=== PATIENT | female | born 1960 | race Caucasian/White ===

== ENCOUNTER → 2017-04-12 | Outpatient (CLI) | payer BC ==
--- NOTE | 2017-04-12 12:13 | REP ---
Right hip two views : There is no fracture or dislocation. Mineralization and joint spaces are normal. There are no calcifications or foreign bodies. Impression: Negative right hip. Consider MRI given the history of pain for 1 year. Signed by Talha Rodriguez MD 04/12/2017 12:05 P
== END ==
LOC: M WUC 09:56
PROVIDERS: ATTEND Physician Assistant
DX: M25.551 Pain in right hip (principal)

== ENCOUNTER → 2017-04-26 | Outpatient (REF) | payer BC ==
[2017-04-26 11:18] LABS: BASO # 0.1 K/mm3 (0.0-0.2); BASO % 0.7 % (0.0-1.0); EOS # 0.1 K/mm3 (0.0-0.50); EOS % 1.2 % (0.0-3.0); LARGE UNSTAINED CELL # 0.1 K/mm3 (0.0-0.4); LARGE UNSTAINED CELL % 0.7 % (0.0-4.0); LYMPH # 2.2 K/mm3 (1.5-4.5); LYMPH % 21.8 % (24.0-44.0); MEAN CORPUSCULAR HEMOGLOBIN 31.9 pg (27.0-33.0); MEAN CORPUSCULAR HGB CONC 34.5 g/dl (32.0-36.5); MEAN CORPUSCULAR VOLUME 92.5 fl (80.0-96.0); MONO # 0.4 K/mm3 (0.0-0.8); MONO % 3.9 % (0.0-5.0); NEUTROPHILS # 7.1 K/mm3 (1.8-7.7); NEUTROPHILS % 71.7 % (36.0-66.0); PLATELET COUNT, AUTOMATED 290 k/mm3 (150-450); RED CELL DISTRIBUTION WIDTH 12.7 % (11.5-14.5); WHITE BLOOD COUNT 9.9 K/mm3 (4.0-10.0)
[2017-04-26 11:51] LABS: ANION GAP 9 MEQ/L (8-16); BLOOD UREA NITROGEN 12 MG/DL (7-18); CALCIUM LEVEL 9.6 MG/DL (8.5-10.1); CARBON DIOXIDE LEVEL 27 MEQ/L (21-32); CHLORIDE LEVEL 106 MEQ/L (98-107); CREATININE FOR GFR 0.76 MG/DL (0.55-1.02); GLOMERULAR FILTRATION RATE > 60.0 (>51); GLUCOSE, FASTING 89 MG/DL (70-105); POTASSIUM SERUM 4.2 MEQ/L (3.5-5.1); SODIUM LEVEL 142 MEQ/L (136-145); URIC ACID 5.4 MG/DL (2.6-6.0)
[2017-04-26 12:22] LABS: ERYTHROCYTE SEDIMENTATION RATE 19 mm/hr (0-30)
[2017-04-28 00:06] LABS: Lyme Disease IgG/IgM Antibodie <0.91 ISR (0.00-0.90); Lyme Disease IgM Ab Quantitati <0.80 index (0.00-0.79)
== END ==
LOC: M LABDRAW1 09:54
PROVIDERS: ATTEND Physician Assistant Surgical
DX: M25.551 Pain in right hip (principal)

== ENCOUNTER → 2017-06-07 | Outpatient (REF) | payer BC | LOC: M LABDRAW1 11:04 | PROVIDERS: ATTEND Physician Assistant Surgical | DX: M16.11 Unilateral primary osteoarthritis, right hip (principal) ==

== ENCOUNTER → 2022-06-28 | Outpatient (CLI) | payer BC ==
[~2022-06-28] MED LIST: CEFD300C41 PO; ISOVUE-300 61% 50ML VIAL ONE; KETO10TAB PO; LIDOCAINE 1% MDV 20ML VIAL ONE; methylPREDNISolone SUSP 40MG/ML 1ML VIAL (DEPO MEDROL) ONE
== END ==
LOC: M PLAIMG 14:41
PROVIDERS: ATTEND Physician Assistant Surgical
DX: M16.11 Unilateral primary osteoarthritis, right hip (principal)
CPT/HCPCS: 20610; 76000; J1030; Q9967

== ENCOUNTER → 2022-07-15 | Outpatient (CLI) | payer BC ==
[2022-07-15 13:35] LABS: HEMATOCRIT 44.5 % (36.0-47.0); HEMOGLOBIN 14.4 g/dl (12.0-15.5); MEAN CORPUSCULAR HEMOGLOBIN 30.9 pg (27.0-33.0); MEAN CORPUSCULAR HGB CONC 32.4 g/dl (32.0-36.5); MEAN CORPUSCULAR VOLUME 95.5 fl (80.0-96.0); PLATELET COUNT, AUTOMATED 290 10^3/uL (150-450); RED BLOOD COUNT 4.66 10^6/uL (4.00-5.40); WHITE BLOOD COUNT 9.9 10^3/uL (4.0-10.0)
[2022-07-15 15:05] LABS: ALBUMIN 4.2 G/DL (3.2-5.2); ALT/SGPT 27 U/L (7.0-40); BILIRUBIN,TOTAL 0.8 MG/DL (0.3-1.2); BLOOD UREA NITROGEN 15 MG/DL (9-23); CALCIUM LEVEL 9.1 MG/DL (8.3-10.6); CARBON DIOXIDE LEVEL 26 MMOL/L (20-31); CHLORIDE LEVEL 102 MMOL/L (98-107); CHOLESTEROL LEVEL 251 MG/DL (<200); CHOLESTEROL RISK RATIO 2.75 (<5); CREATININE FOR GFR 0.75 MG/DL (0.55-1.30); GLOMERULAR FILTRATION RATE > 60.0 (>45); GLUCOSE, FASTING 89 MG/DL (74-106); LDL CHOLESTEROL 144.8 MG/DL (<100); NON-HDL-C 160 MG/DL; POTASSIUM SERUM 3.9 MMOL/L (3.5-5.1); SODIUM LEVEL 138 MMOL/L (136-145); THYROID STIMULATING HORMONE 1.443 uIU/ML (0.55-4.78); TOTAL 25(OH) VITAMIN D 11.1 NG/ML (20.0-100.0); TOTAL PROTEIN 7.2 G/DL (5.7-8.2); TRIGLYCERIDES LEVEL 76 MG/DL (<150)
== END ==
LOC: M PLALAB 11:13
PROVIDERS: ATTEND Nurse Practitioner Adult Health
DX: Z13.29 Encounter for screening for other suspected endocrine disorder (principal); Z13.21 Encounter for screening for nutritional disorder; Z13.220 Encounter for screening for lipoid disorders; Z76.89 Persons encountering health services in other specified circumstances

== ENCOUNTER 2022-07-26 06:29 | Emergency (ER) | payer BC ==
[~2022-07-26] VITALS: Ht 154.9 cm; Wt 61.1 kg
[2022-07-26 08:03] LABS: BASO # 0.1 10^3/uL (0.0-0.2); BASO % 0.6 % (0.0-1.0); EOS # 0.1 10^3/uL (0.0-0.5); EOS % 0.7 % (0.0-3.0); HEMATOCRIT 42.6 % (36.0-47.0); HEMOGLOBIN 14.5 g/dl (12.0-15.5); LYMPH # 2.3 10^3/uL (1.5-5.0); LYMPH % 23.4 % (24.0-44.0); MEAN CORPUSCULAR HEMOGLOBIN 31.5 pg (27.0-33.0); MEAN CORPUSCULAR VOLUME 92.4 fl (80.0-96.0); MONO # 0.8 10^3/uL (0.0-0.8); NEUTROPHILS # 6.5 10^3/uL (1.5-8.5); NEUTROPHILS % 66.9 % (36.0-66.0); PLATELET COUNT, AUTOMATED 296 10^3/uL (150-450); RED BLOOD COUNT 4.61 10^6/uL (4.00-5.40); WHITE BLOOD COUNT 9.7 10^3/uL (4.0-10.0)
[2022-07-26] MEDS ORDERED: KETOROLAC 30 MG/ML 1ML VIAL IV ONE (08:15)
[2022-07-26 08:57] LABS: ALBUMIN 4.2 G/DL (3.2-5.2); ALKALINE PHOSPHATASE 112 U/L (46-116); ALT/SGPT 21 U/L (7.0-40); AST/SGOT 24 U/L (<34); BILIRUBIN,DIRECT 0.2 MG/DL (<0.4); BILIRUBIN,TOTAL 0.5 MG/DL (0.3-1.2); BLOOD UREA NITROGEN 17 MG/DL (9-23); CALCIUM LEVEL 9.2 MG/DL (8.3-10.6); CARBON DIOXIDE LEVEL 22 MMOL/L (20-31); CHLORIDE LEVEL 103 MMOL/L (98-107); CREATININE FOR GFR 0.88 MG/DL (0.55-1.30); GLOMERULAR FILTRATION RATE > 60.0 (>45); GLUCOSE, FASTING 99 MG/DL (74-106); LIPASE 30 U/L (12-53); POTASSIUM SERUM 4.1 MMOL/L (3.5-5.1); SODIUM LEVEL 137 MMOL/L (136-145); TOTAL PROTEIN 7.1 G/DL (5.7-8.2)
[2022-07-26] MEDS ORDERED: CEFD300C41 PO (09:39)
[2022-07-26] MEDS ORDERED: KETO10TAB PO (09:39)
[2022-07-26 10:01] VITALS: BP 197/79
== END 2022-07-26 10:01 | disposition home or self-care (01) ==
LOC: M ED 06:29
DX: N39.0 Urinary tract infection, site not specified (principal); R10.9 Unspecified abdominal pain; I88.9 Nonspecific lymphadenitis, unspecified; F17.210 Nicotine dependence, cigarettes, uncomplicated; Z91.013 Allergy to seafood; Z79.899 Other long term (current) drug therapy
CPT/HCPCS: 74176; 80048; 80076; 81000; 83690; 85025; 96374; 99284; J1885

== ENCOUNTER → 2022-09-06 | Outpatient (CLI) | payer BC, OTHER, SELFPAY ==
[~2022-09-06] MED LIST changes: -ISOVUE-300 61% 50ML VIAL ONE; -LIDOCAINE 1% MDV 20ML VIAL ONE; -methylPREDNISolone SUSP 40MG/ML 1ML VIAL (DEPO MEDROL) ONE
== END ==
LOC: M WHC 07:21
PROVIDERS: ATTEND Nurse Practitioner Adult Health
DX: R31.9 Hematuria, unspecified (principal); Z78.0 Asymptomatic menopausal state; K76.89 Other specified diseases of liver; D73.89 Other diseases of spleen; K76.0 Fatty (change of) liver, not elsewhere classified

== ENCOUNTER → 2022-09-24 | Outpatient (CLI) | payer OTHER | LOC: M WHC 08:23 | PROVIDERS: ATTEND Nurse Practitioner Adult Health | DX: Z12.31 Encounter for screening mammogram for malignant neoplasm of breast (principal); R92.8 Other abnormal and inconclusive findings on diagnostic imaging of breast ==

== ENCOUNTER → 2022-10-07 | Outpatient (CLI) | payer OTHER ==
[~2022-10-07] MED LIST changes: +ATOR1TAB19 PO; +DRIS50003 PO; +ERGO500029 PO; +ISOVUE-300 61% 100ML VIAL As Ordered ONE; +LIDOCAINE 1% MDV 20ML VIAL As Ordered ONE; +VALS1TAB66 PO; +VALS40TA9 PO; +methylPREDNISolone SUSP 40MG/ML 1ML VIAL (DEPO MEDROL) As Ordered ONE
== END ==
LOC: M RAD 10:08
PROVIDERS: ATTEND Physician Assistant Surgical
DX: M16.12 Unilateral primary osteoarthritis, left hip (principal)
CPT/HCPCS: 20610; 76000; J1030; Q9967

== ENCOUNTER → 2022-10-13 | Outpatient (CLI) | payer OTHER ==
[~2022-10-13] MED LIST changes: -ERGO500029 PO; -ISOVUE-300 61% 100ML VIAL As Ordered ONE; -LIDOCAINE 1% MDV 20ML VIAL As Ordered ONE; -VALS1TAB66 PO; -VALS40TA9 PO; -methylPREDNISolone SUSP 40MG/ML 1ML VIAL (DEPO MEDROL) As Ordered ONE
== END ==
LOC: M WHC 08:10
PROVIDERS: ATTEND Nurse Practitioner Adult Health
DX: R92.2 Inconclusive mammogram (principal); N63.15 Unspecified lump in the right breast, overlapping quadrants; N63.25 Unspecified lump in the left breast, overlapping quadrants
CPT/HCPCS: 76642; 77065; G0279

== ENCOUNTER → 2022-10-19 | Outpatient (CLI) | payer OTHER ==
[~2022-10-19] MED LIST changes: +**SFHN** LIDOCAINE 1% MDV 20ML VIAL ONE; +**SFHN** SODIUM BICARBONATE 8.4% 10MEQ 10ML VIAL ONE
[2022-10-19 09:51] VITALS: BP 170/88
== END ==
LOC: M WHCPRO 08:02
PROVIDERS: ATTEND Nurse Practitioner Adult Health
DX: R92.8 Other abnormal and inconclusive findings on diagnostic imaging of breast (principal); N63.10 Unspecified lump in the right breast, unspecified quadrant
CPT/HCPCS: 19083; 77065; 88305; G0279

== ENCOUNTER → 2022-10-21 | Outpatient (CLI) | payer OTHER ==
[~2022-10-21] MED LIST changes: -**SFHN** LIDOCAINE 1% MDV 20ML VIAL ONE; -**SFHN** SODIUM BICARBONATE 8.4% 10MEQ 10ML VIAL ONE
== END ==
LOC: M RAD 08:17
PROVIDERS: ATTEND Nurse Practitioner Adult Health
DX: Z12.2 Encounter for screening for malignant neoplasm of respiratory organs (principal)

== ENCOUNTER → 2022-10-26 | Outpatient (CLI) | payer OTHER ==
[~2022-10-26] MED LIST changes: +**SFHN** SODIUM BICARBONATE 8.4% 10MEQ 10ML VIAL ONE; +LIDOCAINE 1% MDV 20ML VIAL ONE
[2022-10-26 10:44] VITALS: BP 162/84
== END ==
LOC: M WHCPRO 09:12
PROVIDERS: ATTEND Nurse Practitioner Adult Health
DX: R92.8 Other abnormal and inconclusive findings on diagnostic imaging of breast (principal); N63.10 Unspecified lump in the right breast, unspecified quadrant

== ENCOUNTER 2022-12-03 10:20 | Day surgery (SDC) | payer OTHER ==
[~2022-12-03] VITALS: Ht 154.9 cm; Wt 57.1 kg
[~2022-12-03 10:20] MED LIST changes: -**SFHN** SODIUM BICARBONATE 8.4% 10MEQ 10ML VIAL ONE; +ERGO500029 PO; -LIDOCAINE 1% MDV 20ML VIAL ONE; +NS 1,000 ML IV ONE; +VALS1TAB66 PO; +VALS40TA9 PO
[2022-12-03] MEDS ORDERED: propofoL 200 MG/20 ML VIAL As Ordered ONE ×2 (10:27→10:28)
[2022-12-03] MEDS ORDERED: LIDOCAINE 2% 100MG/5ML SDV (FOR ANES.) As Ordered ONE (10:27)
[2022-12-03] MEDS ORDERED: fentaNYL 100 MCG/2 ML INJECTION As Ordered ONE (10:27)
[2022-12-03 14:05] VITALS: BP 101/54
== END 2022-12-03 14:25 | disposition home or self-care (01) ==
LOC: M OPP 10:20
PROVIDERS: ATTEND Internal Medicine Gastroenterology
DX: D12.2 Benign neoplasm of ascending colon (principal); D12.3 Benign neoplasm of transverse colon; D12.5 Benign neoplasm of sigmoid colon; K64.8 Other hemorrhoids; K59.00 Constipation, unspecified; Q43.8 Other specified congenital malformations of intestine; R10.9 Unspecified abdominal pain; F17.200 Nicotine dependence, unspecified, uncomplicated; K74.60 Unspecified cirrhosis of liver; Z79.02 Long term (current) use of antithrombotics/antiplatelets; Z79.899 Other long term (current) drug therapy; Z91.013 Allergy to seafood; Z80.0 Family history of malignant neoplasm of digestive organs
CPT/HCPCS: 43235; 45385; 88305; J3010

== ENCOUNTER → 2022-12-21 | Outpatient (REF) | payer OTHER ==
[~2022-12-21] MED LIST changes: -NS 1,000 ML IV ONE
== END ==
LOC: M SFHCWAGY 17:22
PROVIDERS: ATTEND Obstetrics & Gynecology
DX: R87.619 Unspecified abnormal cytological findings in specimens from cervix uteri (principal)

== ENCOUNTER → 2022-12-29 | Outpatient (CLI) | payer OTHER ==
[2022-12-29 10:36] LABS: HEMATOCRIT 38.9 % (36.0-47.0); HEMOGLOBIN 12.8 g/dl (12.0-15.5); MEAN CORPUSCULAR HEMOGLOBIN 31.8 pg (27.0-33.0); MEAN CORPUSCULAR HGB CONC 32.9 g/dl (32.0-36.5); MEAN CORPUSCULAR VOLUME 96.5 fl (80.0-96.0); PLATELET COUNT, AUTOMATED 273 10^3/uL (150-450); RED BLOOD COUNT 4.03 10^6/uL (4.00-5.40)
[2022-12-29 10:45] LABS: ALBUMIN 4.3 G/DL (3.2-5.2); ALKALINE PHOSPHATASE 108 U/L (46-116); ALT/SGPT 27 U/L (7.0-40); AST/SGOT 33 U/L (<34); BILIRUBIN,TOTAL 0.6 MG/DL (0.3-1.2); BLOOD UREA NITROGEN 15 MG/DL (9-23); CARBON DIOXIDE LEVEL 26 MMOL/L (20-31); CHLORIDE LEVEL 108 MMOL/L (98-107); CHOLESTEROL LEVEL 204 MG/DL (<200); CHOLESTEROL RISK RATIO 2.72 (<5); CREATININE FOR GFR 0.84 MG/DL (0.55-1.30); GLOMERULAR FILTRATION RATE > 60.0 (>45); GLUCOSE, FASTING 88 MG/DL (74-106); HDL CHOLESTEROL 74.8 MG/DL (>40); LDL CHOLESTEROL 114.4 MG/DL (<100); NON-HDL-C 129.2 MG/DL; POTASSIUM SERUM 4.2 MMOL/L (3.5-5.1); RHEUMATOID FACTOR QUANT < 3.5 IU/ML (<14); SODIUM LEVEL 140 MMOL/L (136-145); TOTAL PROTEIN 6.8 G/DL (5.7-8.2); TRIGLYCERIDES LEVEL 74 MG/DL (<150)
[2022-12-29 10:47] LABS: TOTAL 25(OH) VITAMIN D 79.9 NG/ML (20.0-100.0)
== END ==
LOC: M PLALAB 07:16
PROVIDERS: ATTEND Nurse Practitioner Adult Health
DX: I10 Essential (primary) hypertension (principal); E55.9 Vitamin D deficiency, unspecified; E78.2 Mixed hyperlipidemia; M19.90 Unspecified osteoarthritis, unspecified site

== ENCOUNTER → 2023-01-03 | Outpatient (REF) | payer OTHER | LOC: M SFHCWAGY 17:27 | PROVIDERS: ATTEND Obstetrics & Gynecology | DX: C53.9 Malignant neoplasm of cervix uteri, unspecified (principal) ==

== ENCOUNTER 2023-03-21 14:06 | Observation (INO) | payer OTHER ==
[~2023-03-21] VITALS: Ht 154.9 cm; Wt 59.1 kg
[~2023-03-21 14:06] MED LIST changes: +VALS1TAB67 PO
[2023-03-21 15:28] LABS: BASO # 0.1 10^3/uL (0.0-0.2); BASO % 0.5 % (0.0-1.0); EOS % 0.3 % (0.0-3.0); HEMATOCRIT 37.7 % (36.0-47.0); HEMOGLOBIN 12.6 g/dl (12.0-15.5); LYMPH # 1.4 10^3/uL (1.5-5.0); MEAN CORPUSCULAR HEMOGLOBIN 31.8 pg (27.0-33.0); MEAN CORPUSCULAR HGB CONC 33.4 g/dl (32.0-36.5); MEAN CORPUSCULAR VOLUME 95.2 fl (80.0-96.0); MONO % 7.4 % (2.0-8.0); NEUTROPHILS # 10.5 10^3/uL (1.5-8.5); NEUTROPHILS % 80.2 % (36.0-66.0); PLATELET COUNT, AUTOMATED 251 10^3/uL (150-450); RED BLOOD COUNT 3.96 10^6/uL (4.00-5.40); WHITE BLOOD COUNT 13.1 10^3/uL (4.0-10.0)
[2023-03-21 15:41] LABS: INR 0.91; PARTIAL THROMBOPLASTIN TIME 23.5 SECONDS (24.8-34.2); PROTHROMBIN TIME 12.5 SECONDS (12.5-14.5)
[2023-03-21] MEDS: NS 1,000 ML IV SCH ×2 (15:41→21:27)
[2023-03-21 16:13] LABS: LIPASE 27 U/L (12-53)
[2023-03-21 16:15] LABS: ALBUMIN 3.6 G/DL (3.2-5.2); ALKALINE PHOSPHATASE 97 U/L (46-116); ALT/SGPT 19 U/L (7.0-40); AST/SGOT 21 U/L (<34); BILIRUBIN,DIRECT 0.2 MG/DL (<0.4); BILIRUBIN,TOTAL 0.6 MG/DL (0.3-1.2); BLOOD UREA NITROGEN 17 MG/DL (9-23); CARBON DIOXIDE LEVEL 22 MMOL/L (20-31); CHLORIDE LEVEL 105 MMOL/L (98-107); CK-MB VALUE MASS < 1.0 NG/ML (<3.6); CREATININE FOR GFR 0.81 MG/DL (0.55-1.30); GLOMERULAR FILTRATION RATE > 60.0 (>45); GLUCOSE, FASTING 156 MG/DL (74-106); MAGNESIUM LEVEL 1.9 MG/DL (1.8-2.4); POTASSIUM SERUM 3.5 MMOL/L (3.5-5.1); RSV AMPLIFICATION NEGATIVE (NEGATIVE); SODIUM LEVEL 138 MMOL/L (136-145); TOTAL PROTEIN 6.3 G/DL (5.7-8.2)
[2023-03-21 16:17] LABS: FREE T4 1.25 NG/DL (0.89-1.76); THYROID STIMULATING HORMONE 3.672 uIU/ML (0.55-4.78)
[2023-03-21 16:18] LABS: CPK CREATINE PHOSPHOKINASE 61 U/L (34-145); MB/CK RELATIVE INDEX 1.63 (< OR =4)
[2023-03-21] MEDS ORDERED: MED REC IN PROGRESS XX SCH (18:40)
[2023-03-21] MEDS ORDERED: HOME MED LIST COMPLETE! XX SCH (18:45)
[2023-03-21] MEDS ORDERED: ATORVASTATIN 10 MG TAB PO SCH (21:00)
[2023-03-22 00:24] LABS: CK-MB VALUE MASS < 1.0 NG/ML (<3.6)
[2023-03-22 00:25] LABS: CPK CREATINE PHOSPHOKINASE 56 U/L (34-145); MB/CK RELATIVE INDEX 1.78 (< OR =4)
[2023-03-22] MEDS: NS 1,000 ML IV SCH (02:30)
[2023-03-22 06:00] VITALS: TEMP 98.1
[2023-03-22 07:43] VITALS: BP 126/62; O2SAT 98
[2023-03-22] MEDS ORDERED: ISOVUE-370 76% 100ML VIAL As Ordered ONE (07:56)
[2023-03-22 08:32] LABS: HEMOGLOBIN 12.3 g/dl (12.0-15.5); MEAN CORPUSCULAR HEMOGLOBIN 31.9 pg (27.0-33.0); MEAN CORPUSCULAR HGB CONC 33.2 g/dl (32.0-36.5); MEAN CORPUSCULAR VOLUME 95.9 fl (80.0-96.0); PLATELET COUNT, AUTOMATED 232 10^3/uL (150-450); RED BLOOD COUNT 3.86 10^6/uL (4.00-5.40); WHITE BLOOD COUNT 9.7 10^3/uL (4.0-10.0)
[2023-03-22 08:46] LABS: CPK CREATINE PHOSPHOKINASE 60 U/L (34-145)
[2023-03-22 08:47] LABS: BLOOD UREA NITROGEN 12 MG/DL (9-23); CALCIUM LEVEL 8.4 MG/DL (8.3-10.6); CARBON DIOXIDE LEVEL 22 MMOL/L (20-31); CHLORIDE LEVEL 113 MMOL/L (98-107); CK-MB VALUE MASS < 1.0 NG/ML (<3.6); CREATININE FOR GFR 0.61 MG/DL (0.55-1.30); GLOMERULAR FILTRATION RATE > 60.0 (>45); GLUCOSE, FASTING 136 MG/DL (74-106); MAGNESIUM LEVEL 1.6 MG/DL (1.8-2.4); MB/CK RELATIVE INDEX 1.66 (< OR =4); POTASSIUM SERUM 3.7 MMOL/L (3.5-5.1); SODIUM LEVEL 144 MMOL/L (136-145)
[2023-03-22] MEDS ORDERED: ASPIRIN 81MG ENTERIC TABLET PO SCH (09:00)
[2023-03-22] MEDS ORDERED: ENOXAPARIN 40MG/0.4ML SYRINGE (J1650 PER 10MG) SC SCH (09:00)
[2023-03-22] MEDS ORDERED: ATOR40TA75 PO (10:21)
[2023-03-22] MEDS ORDERED: ASPI81TAEC PO (10:21)
[2023-03-22] MEDS ORDERED: MAGNESIUM OXIDE 400MG TAB (MAG-OX) PO ONE (12:55)
[2023-03-22] MEDS ORDERED: MAG SULF 1GM/100ML (MAG RUN) 1 GM in IV 1 EA IV ONE (13:30)
== END 2023-03-22 11:30 | disposition home or self-care (01) ==
LOC: M ED 14:06 → M ED INP 14:07
PROVIDERS: ADMIT Family Medicine; ATTEND Family Medicine
DX: R55 Syncope and collapse (principal); I65.23 Occlusion and stenosis of bilateral carotid arteries; C53.9 Malignant neoplasm of cervix uteri, unspecified; C54.1 Malignant neoplasm of endometrium; R91.1 Solitary pulmonary nodule; R59.0 Localized enlarged lymph nodes; I10 Essential (primary) hypertension; E78.5 Hyperlipidemia, unspecified; E55.9 Vitamin D deficiency, unspecified; K76.0 Fatty (change of) liver, not elsewhere classified; K76.89 Other specified diseases of liver; M19.90 Unspecified osteoarthritis, unspecified site; Z79.899 Other long term (current) drug therapy; Z79.82 Long term (current) use of aspirin; Z91.013 Allergy to seafood; F17.219 Nicotine dependence, cigarettes, with unspecified nicotine-induced disorders
CPT/HCPCS: 36415; 70450; 70498; 70551; 71045; 74176; 80047; 80048; 80076; 82550; 82553; 83690; 83735; 84439; 84443; 84484; 85025; 85027; 85610; 85730; 87631; 93005; 93041; 93880; 94760; 96360; 96361; 97161; 99285; Q9967

== ENCOUNTER → 2023-04-01 | Outpatient (CLI) | payer OTHER ==
[~2023-04-01] MED LIST changes: +ASPI81TAEC PO; +ATOR40TA75 PO; +LIDOCAINE W/EPINEPHRINE 1% 20ML VIAL As Ordered ONE; +MIDAZOLAM INJ 2MG/2ML VIAL As Ordered ONE; +NS 1,000 ML IV SCH; +ceFAZolin 2 GM/D5W 50 ML IV BAG As Ordered ONE; +ceFAZolin SOD 2 GM in IV 1 EA IV ONE; +fentaNYL 100 MCG/2 ML INJECTION As Ordered ONE
[2023-04-01 12:05] VITALS: TEMP 98.6
[2023-04-01 15:00] VITALS: BP 115/58; O2SAT 94
== END ==
LOC: M IRPRO 11:59
PROVIDERS: ATTEND Internal Medicine Medical Oncology
DX: C54.1 Malignant neoplasm of endometrium (principal); C53.9 Malignant neoplasm of cervix uteri, unspecified
CPT/HCPCS: 36561; 99152; 99153; J0690; J2250; J3010

== ENCOUNTER → 2023-04-26 | Outpatient (CLI) | payer OTHER ==
[~2023-04-26] MED LIST changes: +ACET650T61 PO; -LIDOCAINE W/EPINEPHRINE 1% 20ML VIAL As Ordered ONE; -MIDAZOLAM INJ 2MG/2ML VIAL As Ordered ONE; +MIRA3350 PO; -NS 1,000 ML IV SCH; +OXYC1TAB23 PO; +SENO8.6T5 PO; -ceFAZolin 2 GM/D5W 50 ML IV BAG As Ordered ONE; -ceFAZolin SOD 2 GM in IV 1 EA IV ONE; -fentaNYL 100 MCG/2 ML INJECTION As Ordered ONE
== END ==
LOC: M WHC 10:55
PROVIDERS: ATTEND Nurse Practitioner Adult Health
DX: R92.8 Other abnormal and inconclusive findings on diagnostic imaging of breast (principal)
CPT/HCPCS: 77065; G0279

== ENCOUNTER → 2023-05-20 | Outpatient (CLI) | payer OTHER ==
[~2023-05-20] MED LIST changes: +GASTROGRAFIN SOLUTION 30ML As Ordered ONE; +ISOVUE-370 76% 100ML VIAL As Ordered ONE; +ONDA-84 PO; +PROC10TA5 PO
== END ==
LOC: M RAD 08:29
PROVIDERS: ATTEND Internal Medicine Medical Oncology
DX: C53.9 Malignant neoplasm of cervix uteri, unspecified (principal); C54.1 Malignant neoplasm of endometrium
CPT/HCPCS: 71260; 74177; Q9963; Q9967

== ENCOUNTER → 2023-06-10 | Outpatient (CLI) | payer OTHER ==
[~2023-06-10] MED LIST changes: -CEFD300C41 PO; +CEFD300C42 PO; -GASTROGRAFIN SOLUTION 30ML As Ordered ONE; -ISOVUE-370 76% 100ML VIAL As Ordered ONE
== END ==
LOC: M ONCR 08:23
PROVIDERS: ATTEND General Practice
DX: C54.1 Malignant neoplasm of endometrium (principal); C53.8 Malignant neoplasm of overlapping sites of cervix uteri; Z71.2 Person consulting for explanation of examination or test findings; Z80.0 Family history of malignant neoplasm of digestive organs; Z80.8 Family history of malignant neoplasm of other organs or systems; F17.210 Nicotine dependence, cigarettes, uncomplicated; F17.290 Nicotine dependence, other tobacco product, uncomplicated; Z79.82 Long term (current) use of aspirin; Z79.899 Other long term (current) drug therapy; Z92.21 Personal history of antineoplastic chemotherapy; Z98.51 Tubal ligation status

== ENCOUNTER → 2023-06-29 | Outpatient (REF) | payer OTHER ==
[~2023-06-29] MED LIST changes: +PRED10TA2 PO
[2023-06-29 14:23] LABS: HEMOGLOBIN A1c 5.3 % (4.0-6.0)
== END ==
LOC: M LAB REF 13:23
PROVIDERS: ATTEND Nurse Practitioner Adult Health
DX: R73.9 Hyperglycemia, unspecified (principal)

== ENCOUNTER → 2023-08-04 | Outpatient (CLI) | payer OTHER ==
[~2023-08-04] MED LIST changes: +CEFD1CAP9 PO; -CEFD300C42 PO
== END ==
LOC: M RAD 11:25
PROVIDERS: ATTEND General Practice
DX: C54.1 Malignant neoplasm of endometrium (principal); C53.8 Malignant neoplasm of overlapping sites of cervix uteri

== ENCOUNTER → 2023-08-04 | Outpatient (CLI) | payer OTHER ==
[~2023-08-04] MED LIST changes: +GASTROGRAFIN SOLUTION 30ML As Ordered ONE; +ISOVUE-370 76% 100ML VIAL As Ordered ONE
== END ==
LOC: M RAD 14:00
PROVIDERS: ATTEND Internal Medicine Hematology & Oncology
DX: C54.1 Malignant neoplasm of endometrium (principal)
CPT/HCPCS: 71260; Q9963; Q9967

== ENCOUNTER → 2023-08-11 | Outpatient (CLI) | payer OTHER ==
[~2023-08-11] MED LIST changes: -GASTROGRAFIN SOLUTION 30ML As Ordered ONE; -ISOVUE-370 76% 100ML VIAL As Ordered ONE; +PRED50TA PO
== END ==
LOC: M ONCR 09:37
PROVIDERS: ATTEND General Practice
DX: C53.8 Malignant neoplasm of overlapping sites of cervix uteri (principal); C54.1 Malignant neoplasm of endometrium; Z71.2 Person consulting for explanation of examination or test findings; F17.210 Nicotine dependence, cigarettes, uncomplicated; Z79.82 Long term (current) use of aspirin; Z79.899 Other long term (current) drug therapy; Z91.013 Allergy to seafood; Z92.21 Personal history of antineoplastic chemotherapy

== ENCOUNTER → 2023-08-16 | Outpatient (CLI) | payer OTHER | LOC: M RAD 07:01 | PROVIDERS: ATTEND Internal Medicine Hematology & Oncology | DX: C53.9 Malignant neoplasm of cervix uteri, unspecified (principal); K76.0 Fatty (change of) liver, not elsewhere classified; K76.89 Other specified diseases of liver ==

== ENCOUNTER 2023-08-17 10:18 | Outpatient (RCR) | payer OTHER ==
[2023-08-17] MEDS ORDERED: PRED10TA2 PO (10:45)
[2023-08-17] MEDS ORDERED: PRED50TA PO (13:24)
[2023-08-25] MEDS ORDERED: VALA1TAB5 PO (09:20)
[2023-08-25] MEDS ORDERED: PRED20TA PO ×2 (09:35→10:02)
[2023-09-01] MEDS ORDERED: PRED20TA PO (10:16)
== END 2023-08-28 ==
LOC: M ONCR 10:18
PROVIDERS: ATTEND General Practice
DX: Z51.0 Encounter for antineoplastic radiation therapy (principal); C54.1 Malignant neoplasm of endometrium

== ENCOUNTER → 2023-09-28 | Outpatient (RCR) | payer OTHER ==
[~2023-09-28] MED LIST changes: +LACT20EL PO; +POTA1TAB23 PO; +PRED20TA PO; +PRED5TA PO; +VALA1TAB5 PO; +magnesium citrate PO
== END ==
LOC: M ONCR 09-05 09:02
PROVIDERS: ATTEND General Practice
DX: Z51.0 Encounter for antineoplastic radiation therapy (principal); C54.1 Malignant neoplasm of endometrium

== ENCOUNTER → 2023-10-06 | Outpatient (REF) | payer OTHER ==
[2023-10-06 10:20] LABS: HEMOGLOBIN A1c 5.8 % (4.0-6.0)
[2023-10-06 10:26] LABS: CHOLESTEROL RISK RATIO 4.26 (<5); HDL CHOLESTEROL 65.2 MG/DL (>40); NON-HDL-C 212.8 MG/DL
[2023-10-06 10:29] LABS: TOTAL 25(OH) VITAMIN D 60.2 NG/ML (20.0-100.0)
== END ==
LOC: M LAB REF 09:35
PROVIDERS: ATTEND Nurse Practitioner Adult Health
DX: R73.9 Hyperglycemia, unspecified (principal); E78.2 Mixed hyperlipidemia; E55.9 Vitamin D deficiency, unspecified; Z00.00 Encounter for general adult medical examination without abnormal findings

== ENCOUNTER → 2023-10-12 | Outpatient (CLI) | payer OTHER ==
[~2023-10-12] MED LIST changes: +PROHANCE 279.3MG/ML 15ML VIAL As Ordered ONE
== END ==
LOC: M RAD 09:34
PROVIDERS: ATTEND General Practice
DX: C54.1 Malignant neoplasm of endometrium (principal); C53.8 Malignant neoplasm of overlapping sites of cervix uteri
CPT/HCPCS: 72197; A9576

== ENCOUNTER 2023-10-17 09:30 | Outpatient (RCR) | payer OTHER ==
[~2023-10-17 09:30] MED LIST changes: -PROHANCE 279.3MG/ML 15ML VIAL As Ordered ONE
== END 2023-10-27 ==
LOC: M ONCR 09:30
PROVIDERS: ATTEND General Practice
DX: Z51.0 Encounter for antineoplastic radiation therapy (principal); C54.1 Malignant neoplasm of endometrium

== ENCOUNTER → 2023-12-15 | Outpatient (REF) | payer OTHER ==
[2023-12-19 10:29] LABS: CHOLESTEROL RISK RATIO 4.81 (<5); HDL CHOLESTEROL 56.3 MG/DL (>40); LDL CHOLESTEROL 168.7 MG/DL (<100); NON-HDL-C 214.7 MG/DL
== END ==
LOC: M SFHCPLAZ 10:10
PROVIDERS: ATTEND Nurse Practitioner Adult Health
DX: E78.2 Mixed hyperlipidemia (principal)

== ENCOUNTER → 2023-12-23 | Outpatient (CLI) | payer OTHER | LOC: M WHC 08:03 | PROVIDERS: ATTEND Nurse Practitioner Adult Health | DX: Z12.31 Encounter for screening mammogram for malignant neoplasm of breast (principal) ==

== ENCOUNTER → 2024-01-16 | Outpatient (CLI) | payer OTHER | LOC: M PLARAD 07:57 | PROVIDERS: ATTEND Internal Medicine Medical Oncology | DX: C54.1 Malignant neoplasm of endometrium (principal) | CPT/HCPCS: 78815; A9552 ==

== ENCOUNTER → 2024-01-17 | Outpatient (CLI) | payer OTHER | LOC: M ONCR 09:28 | PROVIDERS: ATTEND General Practice | DX: Z08 Encounter for follow-up examination after completed treatment for malignant neoplasm (principal); Z85.42 Personal history of malignant neoplasm of other parts of uterus; Z85.41 Personal history of malignant neoplasm of cervix uteri; Z72.89 Other problems related to lifestyle; F17.210 Nicotine dependence, cigarettes, uncomplicated; F17.290 Nicotine dependence, other tobacco product, uncomplicated; Z71.2 Person consulting for explanation of examination or test findings; Z79.52 Long term (current) use of systemic steroids; Z79.82 Long term (current) use of aspirin; Z79.899 Other long term (current) drug therapy; Z91.013 Allergy to seafood; Z92.21 Personal history of antineoplastic chemotherapy; Z92.3 Personal history of irradiation ==

== ENCOUNTER → 2024-01-24 | Outpatient (CLI) | payer OTHER ==
[~2024-01-24] MED LIST changes: +ALEN70TA82 PO
== END ==
LOC: M WHC 09:09
PROVIDERS: ATTEND General Practice
DX: M81.0 Age-related osteoporosis without current pathological fracture (principal); Z13.820 Encounter for screening for osteoporosis; C54.1 Malignant neoplasm of endometrium; C53.8 Malignant neoplasm of overlapping sites of cervix uteri

== ENCOUNTER → 2024-04-20 | Outpatient (CLI) | payer OTHER ==
[~2024-04-20] MED LIST changes: +CALCTAB89 PO; +CELE100C PO; +CIPR250T3 PO; +ERGO500029; +FERR325T3 PO; +IBUP200C25 PO; +PRIL20TA2 PO; +SERT50TA29
[2024-04-20 12:28] LABS: APPEARANCE, URINE CLEAR (CLEAR); BACTERIA, URINE AUTO NEGATIVE (NEGATIVE); BILIRUBIN, URINE AUTO NEGATIVE (NEGATIVE); BLOOD, URINE BLOOD 1+ (NEGATIVE); COLOR, URINE YELLOW (YELLOW); GLUCOSE, URINE (UA) AUTO NEGATIVE (NEGATIVE); KETONE, URINE AUTO NEGATIVE (NEGATIVE); LEUKOCYTE ESTERASE, URINE AUTO NEGATIVE (NEGATIVE); MUCUS, URINE SMALL (NEGATIVE); NITRITE, URINE AUTO NEGATIVE (NEGATIVE); PROTEIN, URINE AUTO NEGATIVE (NEGATIVE); RBC, URINE AUTO 18 /HPF (0-3); SPECIFIC GRAVITY URINE AUTO 1.015 (1.002-1.035); SQUAMOUS EPITHELIAL CELL UR AU 0 /HPF (0-6); UROBILINOGEN, URINE AUTO 0.2 mg/dL (0.0-2.0); WBC, URINE AUTO 1 /HPF (0-3)
== END ==
LOC: M ONCR 09:39
PROVIDERS: ATTEND General Practice
DX: C54.1 Malignant neoplasm of endometrium (principal); C53.8 Malignant neoplasm of overlapping sites of cervix uteri; M89.8X9 Other specified disorders of bone, unspecified site; F17.210 Nicotine dependence, cigarettes, uncomplicated; Z79.899 Other long term (current) drug therapy; Z91.013 Allergy to seafood; Z92.21 Personal history of antineoplastic chemotherapy; Z92.3 Personal history of irradiation
CPT/HCPCS: 36415; 81001; G0463

== ENCOUNTER → 2024-04-25 | Outpatient (REF) | payer OTHER ==
[2024-04-25 09:36] LABS: HEMOGLOBIN A1c 5.2 % (4.0-6.0)
[2024-04-25 10:15] LABS: ALBUMIN 3.9 G/DL (3.2-5.2); ALKALINE PHOSPHATASE 122 U/L (46-116); ALT/SGPT 16 U/L (7.0-40); AST/SGOT 21 U/L (<34); BILIRUBIN,TOTAL 0.4 MG/DL (0.3-1.2); BLOOD UREA NITROGEN 24 MG/DL (9-23); CALCIUM LEVEL 8.6 MG/DL (8.3-10.6); CARBON DIOXIDE LEVEL 22 MMOL/L (20-31); CHLORIDE LEVEL 108 MMOL/L (98-107); CHOLESTEROL LEVEL 237 MG/DL (<200); CHOLESTEROL RISK RATIO 3.24 (<5); CREATININE FOR GFR 0.91 MG/DL (0.55-1.30); FREE T4 1.01 NG/DL (0.89-1.76); GLOMERULAR FILTRATION RATE > 60.0 (>45); GLUCOSE, FASTING 88 MG/DL (74-106); LDL CHOLESTEROL 147.4 MG/DL (<100); POTASSIUM SERUM 3.8 MMOL/L (3.5-5.1); SODIUM LEVEL 138 MMOL/L (136-145); THYROID STIMULATING HORMONE 1.222 uIU/ML (0.55-4.78); TOTAL PROTEIN 6.6 G/DL (5.7-8.2); TRIGLYCERIDES LEVEL 83 MG/DL (<150)
[2024-05-03 16:22] LABS: ALPHA 2-MACROGLOBULINS,QN 186 mg/dL (106-279); ALT (SGPT) P5P 9 U/L (6-29); APOLIPOPROTEIN A-1 204 mg/dL (101-198); BILIRUBIN, TOTAL 0.3 mg/dL (0.2-1.2); FIBROSIS SCORE 0.06; FIBROSIS STAGE NO FIBROSIS (F0); GGT 13 U/L (3-65); HAPTOGLOBIN 138 mg/dL (43-212); NECROINFLAM ACT GRADE NO ACTIVITY (A0); NECROINFLAM ACT SCORE 0.02
== END ==
LOC: M LAB REF 08:44
PROVIDERS: ATTEND Nurse Practitioner Adult Health
DX: R73.9 Hyperglycemia, unspecified (principal); E78.2 Mixed hyperlipidemia; K76.0 Fatty (change of) liver, not elsewhere classified; I10 Essential (primary) hypertension

== ENCOUNTER → 2024-04-26 | Outpatient (CLI) | payer OTHER ==
[~2024-04-26] MED LIST changes: -CELE100C PO; -FERR325T3 PO; +ISOVUE-370 76% 100ML VIAL As Ordered ONE; -PRIL20TA2 PO
== END ==
LOC: M RAD 08:43
PROVIDERS: ATTEND Internal Medicine Medical Oncology
DX: C54.1 Malignant neoplasm of endometrium (principal); R91.8 Other nonspecific abnormal finding of lung field
CPT/HCPCS: 71260; Q9967

== ENCOUNTER → 2024-07-17 | Outpatient (CLI) | payer OTHER ==
[~2024-07-17] MED LIST changes: +CELE100C PO; +FERR325T3 PO; +GASTROGRAFIN SOLUTION 30ML As Ordered ONE; +PRIL20TA2 PO
== END ==
LOC: M RAD 10:54
PROVIDERS: ATTEND General Practice
DX: C54.1 Malignant neoplasm of endometrium (principal); C53.8 Malignant neoplasm of overlapping sites of cervix uteri
CPT/HCPCS: 71260; 74177; Q9963; Q9967

== ENCOUNTER → 2024-07-23 | Outpatient (CLI) | payer OTHER ==
[~2024-07-23] MED LIST changes: -GASTROGRAFIN SOLUTION 30ML As Ordered ONE; -ISOVUE-370 76% 100ML VIAL As Ordered ONE; +TRIA1CR80 TOP
[2024-07-23 10:57] LABS: CHOLESTEROL RISK RATIO 4.04 (<5); LDL CHOLESTEROL 157.4 MG/DL (<100)
[2024-07-23 11:27] LABS: HEMOGLOBIN A1c 5.3 % (4.0-6.0)
== END ==
LOC: M PLALAB 07:56
PROVIDERS: ATTEND Nurse Practitioner Adult Health
DX: E55.9 Vitamin D deficiency, unspecified (principal)

== ENCOUNTER → 2024-07-24 | Outpatient (CLI) | payer MEDICARE, OTHER | LOC: M ONCR 08:12 | PROVIDERS: ATTEND General Practice | DX: C54.1 Malignant neoplasm of endometrium (principal); C53.8 Malignant neoplasm of overlapping sites of cervix uteri; L30.8 Other specified dermatitis; M06.9 Rheumatoid arthritis, unspecified; M54.9 Dorsalgia, unspecified; F17.210 Nicotine dependence, cigarettes, uncomplicated; Z92.21 Personal history of antineoplastic chemotherapy; Z92.3 Personal history of irradiation; Z91.013 Allergy to seafood; Z79.899 Other long term (current) drug therapy ==

== ENCOUNTER → 2024-10-24 | Outpatient (CLI) | payer OTHER ==
[~2024-10-24] MED LIST changes: +MACR100C43 PO
== END ==
LOC: M ONCR 08:00
PROVIDERS: ATTEND General Practice
DX: Z08 Encounter for follow-up examination after completed treatment for malignant neoplasm (principal); Z85.41 Personal history of malignant neoplasm of cervix uteri; Z85.42 Personal history of malignant neoplasm of other parts of uterus; R30.0 Dysuria; Z92.21 Personal history of antineoplastic chemotherapy; Z92.3 Personal history of irradiation; F17.210 Nicotine dependence, cigarettes, uncomplicated; Z72.89 Other problems related to lifestyle; Z91.013 Allergy to seafood; Z79.899 Other long term (current) drug therapy

== ENCOUNTER → 2024-12-17 | Outpatient (REF) | payer OTHER ==
[2024-12-17 09:36] LABS: CHOLESTEROL RISK RATIO 2.62 (<5); HDL CHOLESTEROL 66.6 MG/DL (>40); LDL CHOLESTEROL 89.6 MG/DL (<100); NON-HDL-C 108.4 MG/DL
== END ==
LOC: M LAB REF 08:08
PROVIDERS: ATTEND Nurse Practitioner Adult Health
DX: E78.2 Mixed hyperlipidemia (principal); E55.9 Vitamin D deficiency, unspecified

== ENCOUNTER → 2024-12-18 | Outpatient (CLI) | payer OTHER ==
[~2024-12-18] MED LIST changes: +ISOVUE-370 76% 100ML VIAL As Ordered ONE
== END ==
LOC: M RAD 10:26
PROVIDERS: ATTEND Internal Medicine Medical Oncology
DX: C54.1 Malignant neoplasm of endometrium (principal)

== ENCOUNTER → 2025-04-25 | Outpatient (CLI) | payer MEDICARE, OTHER ==
[~2025-04-25] MED LIST changes: +ALEV220T22 PO; -ISOVUE-370 76% 100ML VIAL As Ordered ONE; -PRED50TA PO; +PRED50TA57 PO; +SENN-225 PO; -SENO8.6T5 PO; -SERT50TA29; +SERT50TA29 PO
== END ==
LOC: M ONCR 07:58
PROVIDERS: ATTEND General Practice
DX: C54.1 Malignant neoplasm of endometrium (principal); C53.8 Malignant neoplasm of overlapping sites of cervix uteri; Z92.21 Personal history of antineoplastic chemotherapy; Z92.3 Personal history of irradiation; Z87.891 Personal history of nicotine dependence; Z91.013 Allergy to seafood

== ENCOUNTER → 2025-05-27 | Outpatient (CLI) | payer MEDICARE ==
[~2025-05-27] MED LIST changes: +ISOVUE-370 76% 100 ML VIAL As Ordered ONE
== END ==
LOC: M RAD 09:38
DX: C53.9 Malignant neoplasm of cervix uteri, unspecified (principal); J43.9 Emphysema, unspecified; R59.0 Localized enlarged lymph nodes; R91.8 Other nonspecific abnormal finding of lung field; K76.89 Other specified diseases of liver; D73.89 Other diseases of spleen; K63.89 Other specified diseases of intestine
CPT/HCPCS: 71260; 74177; Q9967

== ENCOUNTER → 2025-05-29 | Outpatient (CLI) | payer MEDICARE ==
[~2025-05-29] MED LIST changes: -ISOVUE-370 76% 100 ML VIAL As Ordered ONE
== END ==
LOC: M PLALAB 12:43
PROVIDERS: ATTEND Nurse Practitioner Adult Health
DX: M25.551 Pain in right hip (principal); M16.11 Unilateral primary osteoarthritis, right hip

== ENCOUNTER → 2025-05-31 | Outpatient (CLI) | payer MEDICARE | LOC: M WHC 06:56 | PROVIDERS: ATTEND Nurse Practitioner Adult Health | DX: Z12.31 Encounter for screening mammogram for malignant neoplasm of breast (principal); R92.323 Mammographic fibroglandular density, bilateral breasts ==

== ENCOUNTER → 2025-05-31 | Outpatient (CLI) | payer MEDICARE ==
[2025-05-31 11:16] LABS: ALT/SGPT 34.0 U/L (7.0-40); AST/SGOT 36.0 U/L (<34); CALCIUM LEVEL 9.1 MG/DL (8.3-10.6); CARBON DIOXIDE LEVEL 26.0 MMOL/L (20-31); CHLORIDE LEVEL 107.0 MMOL/L (98-107); CHOLESTEROL LEVEL 238.0 MG/DL (<200); CHOLESTEROL RISK RATIO 3.82 (<5); CREATININE FOR GFR 0.89 MG/DL (0.55-1.30); GLOMERULAR FILTRATION RATE 71.5 (>45); LDL CHOLESTEROL 151.0 MG/DL (<100); NON-HDL-C 175.8 MG/DL; POTASSIUM SERUM 4.7 MMOL/L (3.5-5.1); SODIUM LEVEL 141.0 MMOL/L (136-145); TRIGLYCERIDES LEVEL 124.0 MG/DL (<150)
[2025-05-31 11:18] LABS: FREE T4 1.17 NG/DL (0.89-1.76)
[2025-05-31 11:32] LABS: ESTIMATED AVERAGE GLUCOSE 114.0 MG/DL (60-110)
== END ==
LOC: M PLALAB 06:57
PROVIDERS: ATTEND Nurse Practitioner Adult Health
DX: I10 Essential (primary) hypertension (principal); R73.9 Hyperglycemia, unspecified; E78.2 Mixed hyperlipidemia; E55.9 Vitamin D deficiency, unspecified

== ENCOUNTER → 2025-07-29 | Outpatient (CLI) | payer MEDICARE ==
[~2025-07-29] MED LIST changes: +ISOVUE-370 76% 100 ML VIAL As Ordered ONE
== END ==
LOC: M RAD 09:59
PROVIDERS: ATTEND General Practice
DX: C54.1 Malignant neoplasm of endometrium (principal)
CPT/HCPCS: 71260; 74177; Q9967

== ENCOUNTER → 2025-08-02 | Outpatient (CLI) | payer MEDICARE ==
[~2025-08-02] MED LIST changes: -ISOVUE-370 76% 100 ML VIAL As Ordered ONE
== END ==
LOC: M ONCR 07:48
PROVIDERS: ATTEND General Practice
DX: C54.1 Malignant neoplasm of endometrium (principal); C53.8 Malignant neoplasm of overlapping sites of cervix uteri; M25.551 Pain in right hip; Z79.899 Other long term (current) drug therapy; Z92.21 Personal history of antineoplastic chemotherapy; Z92.3 Personal history of irradiation; Z87.891 Personal history of nicotine dependence; Z91.013 Allergy to seafood